=== PATIENT | male | born 1975 | race Caucasian/White ===

== ENCOUNTER → 2016-12-23 | Outpatient (CLI) | payer BC ==
[~2016-12-23] MED LIST: ALBU1AER9 INH; ATR25 PO; METO25TA56 PO; MONT1TAB5 PO; PANT40TA2 PO
--- NOTE | 2016-12-23 16:18 | DIAGNOSTIC IMAGING REPORT ---
LUMBAR SPINE 5 VIEWS CLINICAL HISTORY: Low back pain. FINDINGS: 5 views of the lumbar spine are correlated with abdominal CT dated 01/22/2016. The skeletal structures are well mineralized. There is no radiographic evidence of fracture or malalignment. Vertebral body height and alignment are maintained. There is mild lumbar levocurvature centered at L2-L3. The transverse and spinous processes are intact. There is no evidence of spondylolysis. There is mild degenerative disc space narrowing at L5-S1 with associated endplate sclerosis. The remaining Intervertebral disc spaces are well-maintained. Tiny anterior osteophytes are seen at L5-S1. The visualized bony pelvis appears intact. Mild sclerotic change is noted involving the sacroiliac joints. There is a nonobstructed abdominal bowel gas pattern. Cholecystectomy clips are noted. Suture material is identified in the right lower quadrant. IMPRESSION: No acute bony abnormality is seen involving the lumbosacral spine. Electronically signed by: John Bliss M.D. 12/23/2016 4:16 PM Dictated Date/Time: 12/23/2016 4:10 PM
--- NOTE | 2016-12-24 09:04 | CODING QUERY NO DIAGNOSIS ---
TREATMENT RENDERED WITHOUT A DIAGNOSIS To promote full compliance with coding requirements relating to patient care, physician participation is requested in all cases of field talent qualification specialist uncertainty. Please assist us with providing a diagnosis/symptom for the test(s) below: A diagnosis/symptom was not documented on your Order. A valid diagnosis/symptom is required to bill all insurances. Please remember that we are unable to code a diagnosis of rule out, probable, possible, questionable, or suspected. Tests that require a diagnosis: DOS 12/23 * X-ray Lumbar spine DIAGNOSIS: Provider Signature: Date: Thank you Marcia Ferraro Health Information Management Once completed, please kindly fax back to [phone] For questions please call [phone]
== END | disposition home or self-care (01) ==
LOC: C.RADBC 15:48
PROVIDERS: ATTEND Family Medicine
DX: M54.5 Low back pain (principal)

== ENCOUNTER → 2016-12-24 | Outpatient (CLI) | payer BC ==
[2016-12-24 13:31] LABS: BASO % 1.8 %; BASO ABS # 0.12 K/uL (0-0.2); COMPLETE YES; EOS % 3.2 %; HEMATOCRIT 44.1 % (42-52); IG% 0.1 %; LYMPH % 38.9 %; LYMPH ABS # 2.65 K/uL (1.2-3.4); MEAN CORPUSCULAR HEMOGLOBIN 31.3 pg (25-34); MEAN CORPUSCULAR HGB CONC 32.9 g/dl (32-36); MEAN PLATELET VOLUME 10.1 fL (7.4-10.4); MONO % 7.8 %; NEUT % 48.2 %; PLATELET COUNT 267 K/uL (130-400); RED BLOOD COUNT 4.64 M/uL (4.7-6.1); WHITE BLOOD COUNT 6.81 K/uL (4.8-10.8)
[2016-12-24 13:56] LABS: ESTIMATED AVERAGE GLUCOSE 103 mg/dl; HA1C FLAG Normal (Normal)
[2016-12-24 15:22] LABS: ALT/SGPT 58 U/L (12-78); AST/SGOT 36 U/L (15-37); BLOOD UREA NITROGEN 14 mg/dl (7-18); BUN/CREATININE RATIO 11.8 (10-20); CALCIUM 9.4 mg/dl (8.5-10.1); CARBON DIOXIDE 29 mmol/L (21-32); CHLORIDE 106 mmol/L (98-107); GLUCOSE 106 mg/dl (70-99); POTASSIUM 4.3 mmol/L (3.5-5.1); SODIUM 141 mmol/L (136-145)
[2016-12-24 15:30] LABS: ALB/GLOB RATIO 1.2 (0.9-2); ALKALINE PHOSPHATASE 53 U/L (45-117)
== END | disposition home or self-care (01) ==
LOC: C.LABBC 09:49
PROVIDERS: ATTEND Family Medicine
DX: M54.5 Low back pain (principal); R20.2 Paresthesia of skin

== ENCOUNTER → 2016-12-30 | Outpatient (CLI) | payer BC ==
--- NOTE | 2016-12-30 17:21 | DIAGNOSTIC IMAGING REPORT ---
MRI OF THE LUMBAR SPINE WITHOUT CONTRAST CLINICAL HISTORY: Persistent lower back pain and lower extremity pain and numbness. COMPARISON STUDY: Lumbar spine radiographs December 23, 2016. TECHNIQUE: Utilizing a 1.5 Ruby magnet and dedicated coil, multiplanar, multiecho imaging of the lumbar spine was performed without IV contrast. FINDINGS: For purposes of numbering on this exam, the L5-S1 disc space is assigned to axial image 27 of 30. Alignment of lumbar spine is anatomic. Vertebral body heights are maintained. The conus terminates at the T12-L1 level. There is no intracanalicular mass or fluid collection. There are multiple T1 and T2 hyperintense lesions within the lumbar spine and the sacrum, the largest of which involves the right aspect of the L3 vertebral body with extension into the right pedicle. This is consistent with a hemangioma. There is also a hemangioma within the left posterior aspect of the L5 vertebral body with extension into the pedicle. There is moderate increased T2 marrow signal at this level on the STIR sequence. A developing fracture would be difficult to exclude but a definite fracture is not visualized. L1-2: The central canal and neural foramen are patent. L2-3: The central canal and neural foramen are patent. L3-4: The central canal and neural foramen are patent. L4-5: The central canal and neural foramen are patent. L5-S1: There is mild disc space narrowing with minimal disc bulge. The central canal and neural foramen are patent. IMPRESSION: 1. Mild multilevel degenerative disc disease at L5-S1 with disc space narrowing and disc bulge. Patent central canal and neural foramen. No disc herniations. 2. 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 Moderate marrow edema within the left pedicle of L5. This marrow signal abnormality could be related to the underlying lesion or reflect a nondisplaced fracture. Electronically signed by: Everton Prabhakar M.D. 12/30/2016 5:19 PM Dictated Date/Time: 12/30/2016 5:08 PM
== END | disposition home or self-care (01) ==
LOC: C.MRI 15:19
PROVIDERS: ATTEND Family Medicine
DX: M54.5 Low back pain (principal); R20.2 Paresthesia of skin; D18.09 Hemangioma of other sites; R60.0 Localized edema

== ENCOUNTER → 2017-03-19 | Outpatient (CLI) | payer BC ==
[~2017-03-19] MED LIST changes: +GADAVIST IV PRN; -PANT40TA2 PO; +PRT/40 PO
--- NOTE | 2017-03-19 09:03 | DIAGNOSTIC IMAGING REPORT ---
BRAIN COMBO CLINICAL HISTORY: 41-year-old male with history of neuropathy. TECHNIQUE: Multiplanar multisequence MRI of the brain was performed both before and after the intravenous administration of contrast. IV contrast: 10 mL of Gadavist. COMPARISON: None. FINDINGS: Normal midline sagittal structures. No restricted diffusion to suggest acute ischemia. Corbin-white matter differentiation preserved. Multiple scattered tiny foci of T2/FLAIR hyperintensity in the centrum semiovale primarily in the frontal lobes, nonspecific. Although their size limits evaluation, these do not enhance. Ventricular and sulcal size normal. No midline shift or mass effect. No hemorrhage or extra-axial fluid collection. T2 skull base flow voids preserved. Paranasal sinuses and mastoid air cells grossly clear. Orbits normal. Craniocervical junction normal. IMPRESSION: Few nonspecific T2/FLAIR hyperintense foci in centrum semiovale primarily in the frontal lobes, which are nonspecific. These may relate to chronic small vessel ischemic change, however, the number of foci are greater than expected for the patient's age. Within the limitation of their punctate size, the absence of enhancement is reassuring. No acute intracranial pathology. Electronically signed by: Anton Bynum M.D. 03/19/2017 9:01 AM Dictated Date/Time: 03/19/2017 8:54 AM
== END | disposition home or self-care (01) ==
LOC: C.MRIBC 07:49
PROVIDERS: ATTEND Family Medicine
DX: G60.3 Idiopathic progressive neuropathy (principal); G93.89 Other specified disorders of brain

== ENCOUNTER → 2017-03-25 | Outpatient (CLI) | payer BC ==
[~2017-03-25] MED LIST changes: -GADAVIST IV PRN
--- NOTE | 2017-03-25 11:40 | DIAGNOSTIC IMAGING REPORT ---
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 COMPARISON: None available. TECHNIQUE: Frontal and lateral views of the right tibia and fibula with frontal and lateral views of the right knee. FINDINGS: KNEE: There is no acute fracture, dislocation or significant degenerative changes. There is a small joint effusion. Soft tissues are unremarkable without radiopaque foreign body. TIBIA/FIBULA: Bone mineralization is within normal limits. There is no acute fracture, dislocation or significant degenerative changes. Soft tissues are unremarkable. IMPRESSION: 1. No acute fracture, dislocation or significant degenerative changes of the right knee, tibia or fibula. 2. Small knee joint effusion. The above report was generated using voice recognition software. It may contain grammatical, syntax or spelling errors. Electronically signed by: Mook Muniz M.D. 03/25/2017 11:38 AM Dictated Date/Time: 03/25/2017 11:36 AM
--- NOTE | 2017-03-25 12:52 | DIAGNOSTIC IMAGING REPORT ---
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 COMPARISON: Right tibia/fibula radiographs 03/25/2017 TECHNIQUE: Multiple real-time sonographic images of the right lower extremity were obtained assessing grayscale appearance from the knee to ankle. FINDINGS: No focal soft tissue mass, shadowing calcification or focal tissue heterogeneity identified within the imaged right lower extremity. IMPRESSION: Unremarkable sonographic exam of the right lower extremity without focal mass. The above report was generated using voice recognition software. It may contain grammatical, syntax or spelling errors. Electronically signed by: Mook Muniz M.D. 03/25/2017 12:51 PM Dictated Date/Time: 03/25/2017 12:49 PM
== END | disposition home or self-care (01) ==
LOC: C.ULTRBC 10:51
PROVIDERS: ATTEND Physician Assistant
DX: G57.31 Lesion of lateral popliteal nerve, right lower limb (principal); M21.379 Foot drop, unspecified foot; G62.9 Polyneuropathy, unspecified; M25.461 Effusion, right knee

== ENCOUNTER → 2017-04-13 | Outpatient (CLI) | payer BC ==
[2017-04-13 15:14] LABS: LYME DISEASE AB IGG NEG (NEG)
[2017-04-13 15:32] LABS: LYME DISEASE AB IGM EQUIVOCAL (NEG)
[2017-04-18 03:12] LABS: 18KDIGG BAND NONREACTIVE (NONREACTIVE); 23KDIGG BAND NONREACTIVE (NONREACTIVE); 23KDIGM BAND REACTIVE (NONREACTIVE); 28KDIGG BAND NONREACTIVE (NONREACTIVE); 30KDIGG BAND NONREACTIVE (NONREACTIVE); 39KDIGG BAND NONREACTIVE (NONREACTIVE); 39KDIGM BAND NONREACTIVE (NONREACTIVE); 41KDIGG BAND NONREACTIVE (NONREACTIVE); 41KDIGM BAND REACTIVE (NONREACTIVE); 45KDIGG BAND NONREACTIVE (NONREACTIVE); 58KDIGG BAND NONREACTIVE (NONREACTIVE); 66KDIGG BAND NONREACTIVE (NONREACTIVE); 93KDIGG BAND NONREACTIVE (NONREACTIVE)
[2017-04-18 14:34] LABS: ALBUMIN 4.8 G/DL (3.8-4.8); COLLECTION SAMPLE Venous; IMMUNOFIXATION IGA SERUM 188 MG/DL (81-463); IMMUNOFIXATION IGG SERUM 1027 MG/DL (694-1618); IMMUNOFIXATION IGM SERUM 160 MG/DL (48-271); LEAD BLOOD <1 mcg/dL (<5); METHYLMALONIC ACID 152 NMOL/L (87-318); TOTAL PROTEIN 7.6 G/DL (6.2-8.3); VIT B1 PLASMA(THIAMIN)**90353 7 nmol/L (8-30)
== END | disposition home or self-care (01) ==
LOC: C.LABBC 10:45
PROVIDERS: ATTEND Physician Assistant
DX: G62.9 Polyneuropathy, unspecified (principal); M21.379 Foot drop, unspecified foot

== ENCOUNTER → 2017-08-25 | Outpatient (CLI) | payer BC ==
[~2017-08-25] MED LIST changes: +PANT40TA2 PO; -PRT/40 PO
--- NOTE | 2017-08-25 19:23 | DIAGNOSTIC IMAGING REPORT ---
MRI OF THE THORACIC SPINE WITHOUT CONTRAST CLINICAL HISTORY: Idiopathic neuropathy. Right foot drop. Low back pain. COMPARISON: None. TECHNIQUE: Utilizing a 1.5 Ruby magnet and dedicated coil, multiplanar, multiecho imaging of the thoracic spine was performed without IV contrast. FINDINGS: Alignment of the thoracic spine is anatomic. Vertebral body heights are maintained. There is no suspicious marrow replacement. Scattered T1 and T2 hyperintense lesions within the thoracic spine are consistent with hemangiomas. There is no suspicious marrow replacement. There is prominent posterior epidural fat within the thoracic canal. There is no intracanalicular mass or fluid collection. Thoracic cord signal and caliber are normal. Paravertebral soft tissues are unremarkable. Minimal multilevel degenerative changes are present with small disc protrusions. There is no significant central canal and neural foraminal stenosis. IMPRESSION: 1. Normal thoracic cord signal and caliber. 2. Mild multilevel degenerative disc disease of the thoracic spine with several small disc protrusions. No central canal canal or neural foraminal stenosis. Electronically signed by: Everton Prabhakar M.D. 08/25/2017 7:22 PM Dictated Date/Time: 08/25/2017 6:49 PM
--- NOTE | 2017-08-25 19:44 | DIAGNOSTIC IMAGING REPORT ---
CERVICAL WITHOUT CONTRAST HISTORY: 42 years-old Male IDIOPATHIC NEUROPATHY history of skin cancer. Symptoms are chronic in nature. COMPARISON: None available TECHNIQUE: Multiplanar multisequence MRI of the cervical spine was obtained without contrast. FINDINGS: The large [id number] specifications checker localizer images demonstrate no gross abnormality. There is no fracture, acute subluxation, focal soft tissue or bone marrow edema of the cervical spine. No marrow replacing process identified. Slightly increased T2/FLAIR signal involving the left pedicle at T3 is noted. Signal within the cervical spinal cord is within normal limits. The imaged posterior fossa structures are unremarkable. C2-C3: Mild intervertebral disc space narrowing with uncovertebral spurring and mild facet arthrosis. No central canal or foraminal narrowing. C3-C4: Mild intervertebral disc space narrowing with uncovertebral spurring and broad-based posterior disc bulge favoring the right lateral recess and right foramen. Mild facet arthrosis. These findings result in mild to moderate right and mild left foraminal narrowing. No significant central canal narrowing. C4-C5: Mild intervertebral disc space narrowing with uncovertebral spurring and broad-based posterior disc bulge favoring the right lateral recess. Mild facet arthrosis. There is flattening of the ventral thecal sac without significant central canal narrowing. There is mild to moderate bilateral foraminal narrowing. C5-C6: Mild uncovertebral spurring with broad-based posterior disc bulge favoring the right lateral recess and right foramen. Mild facet arthrosis. Flattening of the ventral thecal sac without central canal narrowing. Mild bilateral foraminal narrowing. C6-C7: Small broad-based posterior disc bulge with uncovertebral spurring and mild facet arthrosis. Flattening of the ventral thecal sac without significant central canal stenosis. No significant neuroforaminal narrowing. C7-T1: Mild facet arthrosis without central canal or foraminal narrowing. The imaged upper thoracic levels demonstrate no significant central canal narrowing on the sagittal images alone. IMPRESSION: 1. Mild multilevel intervertebral disc space narrowing with posterior disc bulging and facet arthropathy as above results in mild and mild to moderate foraminal stenosis at several levels. No significant central canal narrowing. 2. Focal area of mild marrow edema involving the left pedicle at T3 may be reactive. 3. Normal signal of the cervical spinal cord. The above report was generated using voice recognition software. It may contain grammatical, syntax or spelling errors. Electronically signed by: Mook Muniz M.D. 08/25/2017 7:43 PM Dictated Date/Time: 08/25/2017 6:34 PM
== END | disposition home or self-care (01) ==
LOC: C.MRI 17:07
PROVIDERS: ATTEND Family Medicine
DX: G60.9 Hereditary and idiopathic neuropathy, unspecified (principal); G95.9 Disease of spinal cord, unspecified

== ENCOUNTER → 2017-12-09 | Outpatient (CLI) | payer BC ==
--- NOTE | 2017-12-09 11:11 | DIAGNOSTIC IMAGING REPORT ---
ABDOMEN COMPLETE (US) CLINICAL HISTORY: ABD PAIN COMPARISON STUDY: 02/08/2013 FINDINGS: There is a 2.5 cm left lobe hepatic cyst demonstrating low-level internal echoes. This remains unchanged in size from February 2013. The gallbladder is surgically absent. The pancreas appears sonographically normal. There is no ductal dilatation. The common bile duct measures 5 mm. The right kidney measures 10.3 cm in length. The left kidney measures 11.3 cm in length. No renal masses are visualized. There is no evidence of hydronephrosis. There is no evidence of abdominal aortic dilatation. No abnormality IVC are visualized. No splenic lesions are visualized. The spleen measures 11.9 cm in length. IMPRESSION: 1. Surgically absent gallbladder 2. No ductal dilatation 3. 2.5 cm left hepatic lobe cyst demonstrating low-level internal echoes. This remains unchanged from prior studies. Electronically signed by: Monty Shearer M.D. 12/09/2017 11:09 AM Dictated Date/Time: 12/09/2017 11:07 AM
== END | disposition home or self-care (01) ==
LOC: C.ULTR 10:03
PROVIDERS: ATTEND Family Medicine
DX: K76.89 Other specified diseases of liver (principal); R10.84 Generalized abdominal pain

== ENCOUNTER → 2017-12-10 | Outpatient (CLI) | payer BC ==
--- NOTE | 2017-12-10 15:41 | DIAGNOSTIC IMAGING REPORT ---
CT SCAN OF THE ABDOMEN AND PELVIS WITHOUT IV CONTRAST CLINICAL HISTORY: Generalized abdominal pain. Hematuria. Vomiting. COMPARISON STUDY: Abdominal CT dated 01/22/2016. TECHNIQUE: CT scan of the abdomen and pelvis is performed from the lung bases to the proximal femora. Images are reviewed in the axial, sagittal, and coronal planes. IV contrast was not administered for this examination as per the referring clinician. A dose lowering technique was utilized adhering to the principles of ALARA. CT DOSE: 829.64 mGycm FINDINGS: Lung bases: The heart is normal in size and without pericardial effusion. The lung bases are clear. There is a tiny hiatal hernia. Liver: The unenhanced liver is normal in size, contour, and attenuation. There is no intrahepatic biliary ductal dilatation. Focal fatty infiltration is again seen along the falciform ligament. Gallbladder: Surgically absent noting clips in the gallbladder fossa. Spleen: Normal in size and attenuation. Pancreas: Unremarkable. Adrenal glands: Unremarkable. Kidneys: The unenhanced kidneys are normal in size and without hydronephrosis. There are no renal calculi identified. There is no evidence of contour deforming renal mass lesion. Abdominal vasculature: The abdominal aorta is normal in course and caliber. Bowel: The small bowel and colon are normal in course and caliber. The appendix is not identified and reported surgically absent. Peritoneum: There is no intraperitoneal free air or abdominal ascites. There is a small fat-containing umbilical hernia. Lymphadenopathy: None. Pelvic viscera: The bladder, prostate, and seminal vesicles are normal as visualized. Surgical clips are noted along the spermatic cord bilaterally. Skeletal structures: No lytic or blastic lesions are seen. Hemangiomas are noted in the bodies of L3 and L5. IMPRESSION: There are no acute infectious or inflammatory findings in the abdomen or pelvis. Electronically signed by: John Bliss M.D. 12/10/2017 3:40 PM Dictated Date/Time: 12/10/2017 3:34 PM
== END | disposition home or self-care (01) ==
LOC: C.CTS 15:19
PROVIDERS: ATTEND Family Medicine
DX: R10.84 Generalized abdominal pain (principal)

== ENCOUNTER → 2018-01-26 | Outpatient (CLI) | payer BC | END | disposition home or self-care (01) | LOC: C.LAB 08:47 | PROVIDERS: ATTEND Psychiatry & Neurology Neurology | DX: R29.898 Other symptoms and signs involving the musculoskeletal system (principal) ==